=== PATIENT | male | born 1980 | race Caucasian/White ===

== ENCOUNTER → 2018-02-11 | Outpatient (CLI) | payer OTHER ==
[~2018-02-11] MED LIST: GADOBENATE 529MG/1ML 15ML VIAL IVP ONE
--- NOTE | 2018-02-11 14:47 | RADIOLOGY IMAGING REPORT ---
FACILITY: [facility] - [place] PATIENT NAME: Mike Colon : 1980 MR: [id number] V: [id number] EXAM DATE: ORDERING PHYSICIAN: JAUQELIN SMITH TECHNOLOGIST: [place] [facility] [place] : 1980 Visit/Account:[id number] Date of Sevice: 02/11/2018 BRAIN W W/O CONTRAST Comparisons: None. Additional pertinent history: History of headaches with hearing and vision changes. TECHNIQUE: Multiplanar, multisequence brain MRI was performed with and without gadolinium contrast. CONTRAST: 9 ml of MultiHance. FINDINGS: Sagittal midline structures and craniocervical junction: Negative. Midline shift: None. Ventricles: Negative. Brain parenchyma: Diffusion weighted imaging: Negative. Gradient sequence: Negative. T2 weighted FLAIR images: Negative. Extra-axial spaces: Negative. Dural venous sinuses and major arterial flow voids: Negative. Intracranial enhancement: Negative.. Mastoid air cells and paranasal sinuses: Mild mucosal thickening involving both maxillary sinuses as well as the frontal sinuses and ethmoid air cells. Surrounding soft tissues and orbits: Negative. Impression: 1. No evidence of acute intracranial pathology. 2. Minimal paranasal sinus disease. Report Dictated By: Meek Peters MD at 02/11/2018 2:41 PM Report E-Signed By: Meek Peters MD at 02/11/2018 2:44 PM WSN:[id number]
== END ==
LOC: MRI 12:38
PROVIDERS: ATTEND Psychiatry & Neurology Neurology
DX: R51 Headache (principal); I10 Essential (primary) hypertension
CPT/HCPCS: 36415; 70553; 82565; A9577

== ENCOUNTER → 2018-10-02 | Outpatient (REF) | payer OTHER ==
[2018-10-02 15:28] LABS: PLATELET COUNT, AUTOMATED 175 K/uL (150-450)
== END ==
LOC: ZZSENDIN 15:01
PROVIDERS: ATTEND Nurse Practitioner Family
DX: R07.9 Chest pain, unspecified (principal)
CPT/HCPCS: 82040; 82247; 82310; 82374; 82435; 82565; 82947; 84075; 84132; 84155; 84295; 84450; 84460; 84484; 84520; 85025

== ENCOUNTER → 2018-10-21 | Outpatient (CLI) | payer OTHER ==
--- NOTE | 2018-10-21 12:34 | RT STRESS TEST REPORT ---
FACILITY: [facility] PATIENT NAME: LARY STAHL : [id number] MR: [id number] V: [id number] EXAM DATE: ORDERING PHYSICIAN: RAHEL MANUEL TECHNOLOGIST: Maggie Acquisition Time: 2018-10-21 08:37:37 Total Exercise Time: 00:11:58 Test Indications: Chest Pain / Discomfort Medications: Protocol: BRUCE2 Max HR: 160 BPM 87% of Pred: 182 BPM Max BP: 201/086 mmHG Max Work Load: 13.4 METS Impression No EKG changes to suggest ischemia Resting HTN with exagerrated response Confirmed by GEETA REMY ([id number]) on 10/21/2018 12:33:53 PM Referred By: Overread By: GEETA REMY
== END ==
LOC: RESP 01:34
PROVIDERS: ATTEND Physician Assistant
DX: R07.9 Chest pain, unspecified (principal)
CPT/HCPCS: 93017